=== PATIENT | female | born 1965 | race Two or more races ===

== ENCOUNTER 2021-04-26 08:34 | Emergency (ER) | payer BC, SELFPAY ==
[2021-04-26 08:59] VITALS: BP 154/99; PULSE 99; RESP 16; TEMP 37.2; O2SAT 98; BMI 29.2
--- NOTE | 2021-04-26 09:08 | ED.NECK ---
HPI - Neck Pain/Injury General Chief Complaint: Neck Pain/Injury Stated Complaint: neck pain Time Seen by Provider: 04/26/21 09:08 Related Data Previous Rx's Medication Instructions Recorded cyclobenzaprine 10 mg PO TID PRN #14 tab 04/26/21 ibuprofen 400 mg PO Q6H PRN #20 tab 04/26/21 Allergies Allergy/AdvReac Type Severity Reaction Status Date / Time No Known Allergies Allergy Verified 04/26/21 08:59 PMFSH Past Medical History Medical History (Updated 04/26/21 @ 09:09 by Constance Bethea MD) High cholesterol Surgical History (Updated 04/26/21 @ 09:05 by Stephanie Ross) H/O tubal ligation Hx of cholecystectomy Social History Social History Advance Directives: No Advance Directives Information Provided: Yes Patient : No Physical Exam Vital Signs: Vital Signs: Last Vital Signs Temp 98.9 F 04/26/21 08:59 Pulse 99 04/26/21 08:59 Resp 16 04/26/21 08:59 BP 154/99 H 04/26/21 08:59 Pulse Ox 98 04/26/21 08:59 Body Mass Index 29.2 Discharge Plan Discharge Clinical Impression: Torticollis Patient Disposition: Home, Self-Care Instructions: Spasmodic Torticollis (ED) Prescriptions: New cyclobenzaprine 10 mg tablet 10 mg PO TID PRN (Reason: pain) Qty: 14 RF: 0 ibuprofen 400 mg tablet 400 mg PO Q6H PRN (Reason: pain) Qty: 20 RF: 0 Stand Alone Forms: Work/School Release
--- NOTE | 2021-04-26 09:11 | ED_ITS ---
HPI - Neck Pain/Injury General Chief Complaint: Neck Pain/Injury Stated Complaint: neck pain Time Seen by Provider: 04/26/21 09:08 History of Present Illness HPI Narrative: 55 years old presents today with left neck pain. Worse with movement of the neck. No fever no chills. No photophobia. No pain on turning her head to the right. No focal weakness. Pain is 8/10 when she is turning her head. Related Data Previous Rx's Medication Instructions Recorded cyclobenzaprine 10 mg PO TID PRN #14 tab 04/26/21 ibuprofen 400 mg PO Q6H PRN #20 tab 04/26/21 Allergies Allergy/AdvReac Type Severity Reaction Status Date / Time No Known Allergies Allergy Verified 04/26/21 08:59 Review of Systems Review of Systems: No fever no chills no photophobia and no focal weakness All systems reviewed otherwise negative Yes all other systems are reviewed and are negative [facility] Past Medical History Attestation statement: The following information was validated with the patient. Medical History High cholesterol Surgical History H/O tubal ligation Hx of cholecystectomy Social History Social History Advance Directives: No Advance Directives Information Provided: Yes Patient : No Physical Exam Vital Signs: Vital Signs: Last Vital Signs Temp 98.9 F 04/26/21 08:59 Pulse 99 04/26/21 08:59 Resp 16 04/26/21 08:59 BP 154/99 H 04/26/21 08:59 Pulse Ox 98 04/26/21 08:59 Body Mass Index 29.2 Appearance: Alert. Oriented X3. No acute distress. Eyes: Pupils equal, round and reactive to light. ENT: Pharynx normal. Neck: Positive pain to the left neck in the trapezius muscle. There is no tenderness on palpation of the midline spine. Trachea is midline there is no crepitus on palpation. No pain on turning her head to the right CVS: Normal heart rate and rhythm. Pulses normal. Normal S1 and S2 Respiratory: No respiratory distress. Breath sounds normal. No Wheezing. No rales Abdomen: Soft and nontender. No rigidity. No distention. good BS x4 Skin: Skin warm and dry. Normal skin color. Normal skin turgor. Extremities: No lower extremity edema. Neurovascular intact to all extremities. No Lacerations. No Rash Neuro: Oriented X 3. No motor deficit. No sensory deficit. Moving all extermities. No slurred speech MDM - Neck Pain/Injury MDM Narrative Medical decision making narrative: No evidence for meningitis symptoms suggestive toward a callus. Will give muscle relaxant and NSAIDs. Follow-up outpatient. Discharge Plan Discharge Clinical Impression: Torticollis Patient Disposition: Home, Self-Care Instructions: Spasmodic Torticollis (ED) Prescriptions: New cyclobenzaprine 10 mg tablet 10 mg PO TID PRN (Reason: pain) Qty: 14 RF: 0 ibuprofen 400 mg tablet 400 mg PO Q6H PRN (Reason: pain) Qty: 20 RF: 0 Stand Alone Forms: Work/School Release
== END 2021-04-26 09:15 | disposition home or self-care (01) ==
LOC: HO.ED 09:09
PROVIDERS: Emergency Provider Emergency Medicine Emergency Medical Services; PCP Internal Medicine
DX: G24.3 Spasmodic torticollis (principal)
CPT/HCPCS: 99283

== ENCOUNTER 2021-10-31 10:19 | Emergency (ER) | payer BC, SELFPAY ==
--- NOTE | ~2021-10-31 | XR_ITS ---
EXAMINATION: XR CHEST CLINICAL INFORMATION: Cough and SOB COMPARISON: None TECHNIQUE: 2 views of the chest were obtained. FINDINGS: The lungs are well-expanded and clear acute pneumonic process. The heart size and pulmonary vascularity is normal. There is moderate spondylosis dorsal spine. No lytic process seen. XR/XR chest 2V IMPRESSION: Unremarkable chest exam.
[2021-10-31 10:53] VITALS: BP 127/72; PULSE 104; RESP 97; TEMP 36.4; O2SAT 97; BMI 29.2
[2021-10-31 11:20] VITALS: BP 134/85; PULSE 104; RESP 22; TEMP 36.6; O2SAT 96
--- NOTE | 2021-10-31 11:20 | ECG_ITS ---
Test Reason : tachycardia Blood Pressure : / mmHG Vent. Rate : 098 BPM Atrial Rate : 098 BPM P-R Int : 148 ms QRS Dur : 074 ms QT Int : 344 ms P-R-T Axes : 046 044 018 degrees QTc Int : 439 ms Normal sinus rhythm Normal ECG No previous ECGs available Referred By: Akira Matthew Electronically Signed By:MARIBELL BLANK MD
[2021-10-31 11:25] VITALS: PULSE 103; O2SAT 97
--- NOTE | 2021-10-31 11:26 | PC.NURSE ---
pt a&ox3, reports sore throat, cough for ~1 week, COVID + (tested 10/23/21), desk monitor applied, sinus tach, vss.
--- NOTE | 2021-10-31 11:29 | ED.GENADULT ---
HPI - General Adult General Chief complaint: Upper Respiratory Symptoms Stated complaint: sob Time Seen by Provider: 10/31/21 11:20 Source: patient Limitations: no limitations History of Present Illness HPI narrative: This is a 55-year-old female who has had a cough for about a week. The patient did test positive for COVID on October 23. Patient complains of persistent cough. She denies fever. She denies shortness of breath or chest pain. She denies any swelling in her legs. She has had a poor appetite and notes when she eats she does does not feel like having much but she is drinking plenty of water. She denies any nausea vomiting or diarrhea. She denies abdominal pain. Related Data Previous Rx's Medication Instructions Recorded cyclobenzaprine 10 mg tablet 10 mg PO TID PRN #14 tab 04/26/21 ibuprofen 400 mg tablet 400 mg PO Q6H PRN #20 tab 04/26/21 iojvmuklkiadhge-lzkogxwjnqxdybd-MQ 7.5 ml PO Q4-6H PRN #118 ml 10/31/21 2 mg-30 mg-10 mg/5 mL oral syrup (Bromfed DM) Allergies Allergy/AdvReac Type Severity Reaction Status Date / Time No Known Allergies Allergy Verified 04/26/21 08:59 Review of Systems Constitutional: Constitutional: Reports as per HPI and Reports fatigue Eyes: Eyes: Reports as per HPI ENT: Reports system reviewed and no additional complaints, except as documented Cardiovascular: Cardiovascular: Denies chest pain, Denies irregular heart rhythm and Denies leg edema Respiratory: Respiratory: Reports cough Gastrointestinal: Gastrointestinal: Denies diarrhea, Denies nausea and Denies vomiting Comments: Poor appetite Musculoskeletal: Musculoskeletal: Reports no additional musculoskeletal complaints Neurologic: Denies Sensory deficit (Neuro) Endocrine: Endocrine: Reports fatigue [facility] Past Medical History Medical History High cholesterol Surgical History H/O tubal ligation Hx of cholecystectomy Social History Social History Alcohol intake: never Patient Tobacco Use Status: Never used Tobacco Use of substances other than those prescribed or required for medical reasons: No Advance Directives: Yes Advance Directives Information Provided: Yes Advance Directives on File: No Medical Decision Making MDM Narrative Medical decision making narrative: Patient with URI symptoms for 3 weeks, persistent cough. Patient initially had a viral syndrome and may have persistent bronchitis. Chest x-ray negative. Will prescribe a regimen of cough medicine Imaging Data Chest x-ray: Radiologist's impression: FINDINGS: The lungs are well-expanded and clear acute pneumonic process. The heart size and pulmonary vascularity is normal. There is moderate spondylosis dorsal spine. No lytic process seen. XR/XR chest 2V IMPRESSION: Unremarkable chest exam. ECG Data Attestation: I personally reviewed and interpreted this ECG as follows: Interpretation: Sinus rhythm with a rate of 98. No ST elevation or depression. Normal QRS axis. Normal EKG. Discharge Plan Discharge Clinical Impression: Upper respiratory infection Patient Disposition: Home, Self-Care Instructions: Acute Bronchitis (ED) Additional Instructions: Drink plenty of fluids. Use the cough medicine as prescribed. Return for any new or worsened symptoms such as fever, shortness of breath or chest pain Prescriptions: New noaptgfsfpvnviz-tgdqfwued-WF [Bromfed DM] 2-30-10 mg/5 mL syrup 7.5 ml PO Q4-6H PRN (Reason: cold symptoms) Qty: 118 1RF No Action cyclobenzaprine 10 mg tablet 10 mg PO TID PRN (Reason: pain) Qty: 14 0RF ibuprofen 400 mg tablet 400 mg PO Q6H PRN (Reason: pain) Qty: 20 0RF Stand Alone Forms: Work/School Release Interventions: ED Discharge Assessment Last Done: 10/31/21 12:36 Discharge Date/Time: 10/31/21 12:44
== END 2021-10-31 12:44 | disposition home or self-care (01) ==
PROVIDERS: Emergency Provider Emergency Medicine; PCP Internal Medicine
DX: J06.9 Acute upper respiratory infection, unspecified (principal); Z86.16 Personal history of COVID-19
CPT/HCPCS: 71046; 93005; 99283; 99285

== ENCOUNTER 2022-05-06 15:12 | Emergency (ER) | payer BC, SELFPAY ==
[2022-05-06 16:13] VITALS: BP 129/66; PULSE 82; RESP 18; TEMP 36.5; O2SAT 97; BMI 28.6
[2022-05-06 16:35] LABS: Appearance Urine HAZY; Color Urine YELLOW; Glucose Urine UA 500 MG/DL (NEG); Leukocyte Esterase Urine NEG (NEG); Nitrite Urine NEG (NEG); Urine Blood NEG (NEG); Urine Ketones 5 MG/DL (NEG); Urine Protein NEG (NEG-TRACE)
--- NOTE | 2022-05-06 18:12 | ED.BACK ---
HPI - Back Pain/Injury General Chief Complaint: Back Pain/Injury Stated Complaint: L Side Back Pain No Injury Time Seen by Provider: 05/06/22 17:43 Source: patient Mode of arrival: ambulatory Limitations: no limitations History of Present Illness HPI Narrative: 56 yold male presents to the ED for left sided back pain that is worse on movement for one week. patient denies any blunt trauma, nausea, vomitting, dysuria, hematuria, abdominal pain, or vaginal bleeding. patient denies any IV drug use or any immunocompromised diseases. patient denies any urinary/bowel incontinence or morphine Related Data Previous Rx's Medication Instructions Recorded cyclobenzaprine 10 mg tablet 10 mg PO TID PRN pain #14 tabs 04/26/21 ibuprofen 400 mg tablet 400 mg PO Q6H PRN pain #20 tabs 04/26/21 zisgnvuhklbdykx-xkajsvwjdwdvvlz-SB 7.5 ml PO Q4-6H PRN cold symptoms 10/31/21 2 mg-30 mg-10 mg/5 mL oral syrup #118 mL (Bromfed DM) cyclobenzaprine 10 mg tablet 10 mg PO TID PRN muscle spasm 7 05/06/22 days #21 tabs naproxen 500 mg tablet 500 mg PO BID PRN pain 10 days #20 05/06/22 tabs prednisone 20 mg tablet 40 mg PO DAILY 5 days #10 tabs 05/06/22 Allergies Allergy/AdvReac Type Severity Reaction Status Date / Time No Known Allergies Allergy Verified 05/06/22 16:13 Review of Systems Review of Systems: left sided back pain Yes all other systems are reviewed and are negative PMFSH Past Medical History Medical History High cholesterol Surgical History H/O tubal ligation Hx of cholecystectomy Social History Social History Alcohol intake: never Patient Tobacco Use Status: Never used Tobacco Advance Directives: No Advance Directives Information Provided: No Physical Exam Vital Signs: Vital Signs: Last Vital Signs Temp 97.7 F 05/06/22 16:13 Pulse 68 05/06/22 18:44 Resp 18 05/06/22 18:44 BP 138/83 05/06/22 18:44 Pulse Ox 97 05/06/22 16:13 O2 Del Method 05/06/22 16:13 BMI result Body Mass Index 28.6 Const: General: cooperative, healthy appearing, comfortable, no acute distress, well developed, alert and awake Orientation/consciousness: oriented to time and patient oriented x3 HEENT: Head: Yes normal to inspection, Yes No palpable skull fracture present, Yes normocephalic, Yes atraumatic and No abrasion Eyes: General: appearance normal, both eyes and all related structures Neck: Neck: Yes normal visual inspection, Yes full ROM, Yes no lymphadenopathy, Yes no meningeal signs, Yes trachea midline, Yes supple, No anterior neck swelling and No tender Chest: Chest palpation & inspection: normal inspection of the chest and normal palpation of entire chest wall Resp: Effort & Inspection: normal respiratory effort and able to speak in complete sentences Auscultation: clear to auscultation bilaterally Cardio: Jugular venous distension: no JVD Heart sounds: S1 normal heart sound present and S2 normal heart sound present GI: Inspection: Yes normal to inspection and No abdominal wall ecchymosis Palpation (GI): Soft to palpation, not firm, nontender, no guarding and not rigid : General: No CVA tenderness and Yes no CVA tenderness Back/Spine/Pelvis: Back: no CVA tenderness, No CVA tenderness and No back tenderness Back/spine/pelvis image: 1. positive for muscular back pain on palpation. negative for spine tenderness. negative for erythema, redness, ecchymosis, or rash. Positive for pain on range of motion. Skin: General skin exam: no rashes or lesions noted, elasticity normal and turgor normal Neuro: General: oriented to time, patient oriented x3, gait normal and no meningeal signs Cranial nerves: Yes CN's II-XII intact bilaterally Extrem: General: Yes normal to inspection and Yes full ROM Psych: Appearance: grossly normal, well kempt and not disheveled Course Course Course Narrative: UA order. No need for xrays. negative for spine tendernes. Reevaluation(s) Reevaluation #1: UA negateive for blood to indicate kidney stones. uA negaive for UTI. negative for spine tenderness. Muscular back pain. patient UA shows over 500 gucose. POC glucose orderd and is 185. patient informed to follow up [facility] PCP for Diabetes workup. Time: 18:28 MDM - Back Pain/Injury MDM Narrative Medical decision making narrative: muscular back pain Lab Data Labs: Lab Results 05/06/22 05/06/22 Range/Units 16:19 18:33 POC Glucose 185 H (60-115) mg/dL Urine Color YELLOW Urine Appearance HAZY Urine pH 6.0 (5.0-8.0) Ur Specific [place] 1.020 (1.005-1.025) Urine Protein NEG (NEG-TRACE) MG/DL Urine Glucose (UA) 500 H (NEG) MG/DL Urine Ketones 5 (NEG) MG/DL Urine Blood NEG (NEG) Urine Nitrite NEG (NEG) Ur Leukocyte Esterase NEG (NEG) Discharge Plan Discharge Clinical Impression: Lumbar back sprain Patient Disposition: Home, Self-Care Instructions: Low Back Strain (ED) Additional Instructions: Your pain due to muscular back pain. You UA negative for UTI. REturn to the ED immediatley for any urinary/bowel incontinence, abdominal pain, nausea, hematuria, flank pain, fever, chills, paralysis of lower extremities, or any other concerning symptoms. Please follow up [facility] PCP Prescriptions: New naproxen 500 mg tablet 500 mg PO BID PRN (Reason: pain) 10 Days Qty: 20 0RF prednisone 20 mg tablet 40 mg PO DAILY 5 Days Qty: 10 0RF cyclobenzaprine 10 mg tablet 10 mg PO TID PRN (Reason: muscle spasm) 7 Days Qty: 21 0RF Rx Instructions: side effect is drowsiness. Do not take at work or while driving. No Action cyclobenzaprine 10 mg tablet 10 mg PO TID PRN (Reason: pain) Qty: 14 0RF ibuprofen 400 mg tablet 400 mg PO Q6H PRN (Reason: pain) Qty: 20 0RF bioyuihovqgiuhi-vzsrimimt-ZT [Bromfed DM] 2-30-10 mg/5 mL syrup 7.5 ml PO Q4-6H PRN (Reason: cold symptoms) Qty: 118 1RF Stand Alone Forms: Work/School Release Interventions: ED Discharge Assessment Last Done: 05/06/22 19:09 Discharge Date/Time: 05/06/22 19:11 Print Language: [place]an
[2022-05-06 18:40] LABS: Glucose, Whole Blood 185 mg/dL (60-115)
[2022-05-06] MEDS: predniSONE 20 MG TABLET 60 MG PO (18:42)
[2022-05-06] MEDS: Ibuprofen 800 MG TABLET PO (18:43)
[2022-05-06 18:44] VITALS: BP 138/83; PULSE 68; RESP 18
--- NOTE | 2022-05-06 18:45 | PC.NURSE ---
sitting up on stretcher, medicated per order. No facial grimace at rest, awaiting dispo
== END 2022-05-06 19:11 | disposition home or self-care (01) ==
PROVIDERS: Emergency Provider Student in an Organized Health Care Education/Training Program; PCP Internal Medicine
DX: M54.50 Low back pain, unspecified (principal); Z79.899 Other long term (current) drug therapy
CPT/HCPCS: 81003; 82947; 99283

== ENCOUNTER 2024-12-09 15:53 | Emergency (ER) | payer BC, SELFPAY ==
--- NOTE | ~2024-12-09 | CT_ITS ---
CLINICAL HISTORY: LLQ ABD pain, TTP CT abdomen and pelvis with contrast Comparison: CT - CT ABDOMEN PELVIS W IV CON - 12/09/24 21:00 EST Findings: No consolidation or effusion. The patient is status post cholecystectomy. There is hepatic steatosis. There is a small nonobstructing calculus in the midpole of the right kidney. There is colonic diverticulosis without evidence of diverticulitis. There is epiploic appendagitis distal descending colon. Pelvic contents unremarkable. Normal appendix. No acute fracture. The GI tract is otherwise unremarkable. IMPRESSION: 1. Epiploic appendagitis distal descending colon. 2. Colonic diverticulosis without evidence of diverticulitis. 3. Tiny nonobstructing calculus midpole right kidney. 4. Hepatic steatosis. This document has been electronically signed by: Pop Starr MD on 12/09/2024 22:08:05
--- NOTE | ~2024-12-09 | US_ITS ---
CLINICAL HISTORY: L pelvic pain US female pelvis LMP:5 years ago, postmenopausal. Technique: Ultrasound examination of the pelvis was performed with transabdominal and transvaginal technique for better visualization of the ovaries. Comparison: None Findings: Anteverted uterus measuring 7.0 x 3.0 x 3.7cm without masses. Normal endometrial thickness of 0.4cm. The ovaries were not visualized. No lesions in the adnexa. No free fluid. Impression: Normal uterus. The ovaries were not visualized. No abnormality in the adnexa. No free fluid. This document has been electronically signed by: Marysol Gatica MD on 12/09/2024 17:37:42
[2024-12-09 16:15] VITALS: BP 171/90; PULSE 76; RESP 16; TEMP 36.6; O2SAT 99; BMI 27.3
--- NOTE | 2024-12-09 16:23 | ED_ITS ---
HPI - Abdominal Pain General Chief Complaint: Abdominal Pain Stated Complaint: lower abd pain Time Seen by Provider: 12/09/24 20:21 Source: patient Mode of arrival: ambulatory Limitations: no limitations History of Present Illness ED Provider: mindi acosta np HPI narrative: patient is a 59-year-old female who presents emergency department for evaluation. She admits to having pain in the left lower pelvic/left lower quadrant abdominal region for 4 days. she reports that it feels different from pain that she has felt in the past secondary to menstrual pain. She states she has been in menopause for the past 5 years. Denies fevers, chills, chest pain, nausea, vomiting, hematemesis, diarrhea, constipation, hematochezia, melena, dysuria, urinary frequency, urinary urgency, urinary hesitancy, hematuria, Denies abnormal vaginal discharge or any bleeding. Denies concern for sexually transmitted infection. Related Data Previous Rx's ?Medication ?Instructions ?Recorded cyclobenzaprine 10 mg tablet 10 mg PO TID PRN pain #14 tabs 04/26/21 ibuprofen 400 mg tablet 400 mg PO Q6H PRN pain #20 tabs 04/26/21 yjnwolfomjtoqrd-gmxljdqqliwvhlz-SD 7.5 ml PO Q4-6H PRN cold symptoms 10/31/21 2 mg-30 mg-10 mg/5 mL oral syrup #118 mL (Bromfed DM) cyclobenzaprine 10 mg tablet 10 mg PO TID PRN muscle spasm 7 05/06/22 days #21 tabs naproxen 500 mg tablet 500 mg PO BID PRN pain 10 days #20 05/06/22 tabs prednisone 20 mg tablet 40 mg (2 x 20 mg) PO DAILY 5 days 05/06/22 #10 tabs Allergies Allergy/AdvReac Type Severity Reaction Status Date / Time No Known Allergies Allergy Verified 12/09/24 16:18 Review of Systems Review of Systems Yes all other systems are reviewed and are negative PMFSH Past Medical History Attestation statement: The following information was validated with the patient. Source: old records reviewed Medical History High cholesterol Surgical History Hx of cholecystectomy H/O tubal ligation Social History Social History Alcohol intake: never Patient Tobacco Use Status: Never used Tobacco Advance Directives: No Advance Directives Information Provided: No Physical Exam ED Vital Signs: Vital Signs - 24 hr 12/09/24 16:15 12/09/24 20:25 12/09/24 22:31 Temperature 97.8 F 97.2 F 98.6 F Pulse Rate 76 84 74 Respiratory Rate 16 16 16 Blood Pressure 171/90 H 161/100 H 148/94 H Pulse Oximetry 99 97 99 Oxygen Delivery Method Room Air Room Air Room Air BMI result Body Mass Index 27.3 Appearance: Alert.?Oriented to person, place and time. No acute distress.?Normal affect.?? Neck: Normal inspection.? Neck supple.?? CVS: Heart sounds normal. Normal heart rate and rhythm.? Pulses normal.?? Respiratory: No respiratory distress.? Lung sounds clear to auscultation bilaterally?? Abdomen: Soft with left lower quadrant tenderness upon palpation. No rebound tenderness at McBurney's point. Negative psoas sign. Negative Rovsing sign. Negative Ramires sign. No CVAT. Normoactive bowel sounds. No pulsatile mass.?? Skin: Skin warm and dry.? Normal skin color.? Extremities: No lower extremity edema.? Neuro: Moves all extremities spontaneously. Sensation intact bilaterally. Ambulates with normal steady gait. Course Course Course Narrative: This is an RME: Additional HPI, ROS, PE not included below will be deferred to primary provider. RME assessment and note performed by: Nataliia Trevizo PA-C This is a 59-year-old female who presents emergency department with complaints of left lower pelvic pain x4 days. She denies any nausea, vomiting, diarrhea or urinary symptoms. Still eating and drinking. No history of cyst. She does have mild tenderness palpation in the left lower quadrant. Plan: Labs, UA,US pelvic Reevaluation(s) Reevaluation #1: CT of the abdomen and pelvis revealing epiploic appendagitis of the distal descending colon, reviewed this finding with patient, advised conservative treatment with NSAIDs; ibuprofen 600 mg every 6 hours alternating with acetaminophen as necessary. She is tolerating oral intake. Medical Decision Making Medical Decision Making MDM Narrative: patient is a 59-year-old female with past medical history of hypercholesterolemia, prior cholecystectomy tubal ligation in menopause for the past 5 years who presents emergency department for evaluation of left lower quadrant abdominal /pelvic pain as per HPI. She has tenderness In the left lower quadrant upon palpation. overall without signs of systemic toxicity found to be afebrile without tachycardia, no hypotension. No rebound tenderness at McBurney's point, rigidity, guarding to suggest acute appendicitis. Given tenderness of the left lower quadrant though she is without associated nausea, vomiting, diarrhea, constipation, hematochezia or melena, given her age concern for diverticulitis, will obtain CT of the abdomen and pelvis for further evaluation. Pelvic ultrasound was obtained prior to my assumption of care, normal appearance of the uterus ovaries not well visualized. HCG is detectable at 4, not consistent with , especially given that she has been menopause for the past 5 years. CBC is without leukocytosis anemia or thrombocytopenia. No electrolyte derangement. No DIEGO. LFTs within normal range. Urinalysis without evidence of infection or microscopic hematuria. She denies any recent straining heavy lifting or exercising that would have resulted in a notable musculoskeletal strain. Differential Diagnosis Differential Diagnoses: The differential diagnosis associated with the presentation includes (See narrative above) Admission/Observation Consideration of admission/observation: Escalation of care including admission/observation considered (See narrative above ) Lab Data MDM Lab Attestation statement: I reviewed the patient's lab results. (see narrative above) 12/09/24 16:43 12/09/24 16:43 Labs: Lab Results 12/09/24 12/09/24 Range/Units 16:43 16:46 WBC 8.6 (4.8-10.8) X10*3/uL RBC 4.76 (4.20-5.50) X10*6/uL Hgb 14.0 (12.0-16.0) g/dl Hct 41.6 (37.0-47.0) % MCV 87.4 (80.0-98.0) fL MCH 29.4 (27.0-33.0) pg MCHC 33.7 (31.0-35.0) g/dl RDW 13.1 (11.0-16.0) % Plt Count 315 (160-400) X10*3/uL MPV 10.1 (9.4-12.3) fL Immature Gran % (Auto) 0.3 (0.0-0.4) % Neut % (Auto) 48.4 (45-73) % Lymph % (Auto) 41.4 H (20-40) % [place] % (Auto) 7.0 (2-11) % Eos % (Auto) 2.1 (0-4) % Baso % (Auto) 0.8 (0-2) % Lymph # (Auto) 3.6 (1.2-4.9) X10*3/uL [place] # (Auto) 0.6 (0.1-1.2) X10*3/uL Eos # (Auto) 0.2 (0.0-0.4) X10*3/uL Baso # (Auto) 0.1 (0.0-0.2) X10*3/uL Abs Immat Gran (auto) 0.03 (0.00-0.03) X10*3/uL Absolute Neuts (auto) 4.2 (2.0-8.3) x10*3/uL Absolute Nucleated RBC 0.000 (0.0-0.012) X10*3/uL Nucleated RBC % (auto) 0.0 (0.0-0.2) /100WBC Sodium 143 (135-145) mmol/L Potassium 3.9 (3.3-5.1) mmol/L Chloride 107 (96-108) mmol/L Carbon Dioxide 26 (22-29) mmol/L Anion Gap 14 (12-20) BUN 12 (9-16) mg/dL Creatinine 0.83 (0.5-1.4) mg/dL Estim Creat Clear Calc 77.3 Estimated GFR > 60 Random Glucose 85 (60-115) mg/dL Calcium 10.2 (8.4-10.2) mg/dL Total Bilirubin 0.4 (0.0-1.0) mg/dL Direct Bilirubin 0.1 (0.0-0.5) mg/dL AST 25 (5-31) U/L ALT 29 (0-31) U/L Alkaline Phosphatase 64 (39-117) U/L Total Protein 8.6 H (6.5-8.0) g/dL Albumin 4.7 (3.5-5.0) g/dL Beta HCG, Quant 4 mIU/mL Urine Color Yellow Urine Appearance Clear Urine pH 7.5 (5.0-9.0) Ur Specific [place] <= 1.005 (1.005-1.025) Urine Protein Negative (Neg-Trace) mg/dL Urine Glucose (UA) Negative (Negative) mg/dL Urine Ketones Negative (Negative) mg/dL Urine Blood Negative (Negative) Urine Nitrite Negative (Negative) Ur Leukocyte Esterase Negative (Negative) Radiology Impression Discussion of test interpretation with radiology: I have reviewed the radiologist's reading. Radiologist Impression: US female pelvis LMP:5 years ago, postmenopausal. Technique: Ultrasound examination of the pelvis was performed with transabdominal and transvaginal technique for better visualization of the ovaries. Comparison: None Findings: Anteverted uterus measuring 7.0 x 3.0 x 3.7cm without masses. Normal endometrial thickness of 0.4cm. The ovaries were not visualized. No lesions in the adnexa. No free fluid. Impression: Normal uterus. The ovaries were not visualized. No abnormality in the adnexa. No free fluid. IMPRESSION: CT AP w/ IV contrast 1. Epiploic appendagitis distal descending colon. 2. Colonic diverticulosis without evidence of diverticulitis. 3. Tiny nonobstructing calculus midpole right kidney. 4. Hepatic steatosis. External Record Review External record reviewed: Outpatient record Medications Administered Discontinued Medications Generic Name Dose Route Start Last Admin Trade Name Freq PRN Reason Stop Dose Admin Sodium Chloride 1,000 mls @ 999 mls/hr 12/09/24 21:15 12/09/24 21:23 Ns IV 12/09/24 22:15 999 mls/hr .Q1H1M LO Administration Iohexol 85 ml 12/09/24 21:38 12/09/24 21:39 Iohexol 350 Mg/Ml 100 Ml Infus..Btl IV 12/09/24 21:39 85 ml ONCE ONE Administration Discharge Plan Discharge Clinical Impression: Epiploic appendagitis Patient Disposition: Home, Self-Care Additional Instructions: CT today reveals epiploic appendagitis, which is fatty outpouches on the surface of your intestines which is likely the source of the pain that you are experiencing. You can take ibuprofen 200 mg, 3 tablets (600mg) every 6-8 hours as needed for pain, in addition to Tylenol 500 mg, 2 tablets (1,000mg) every 4-6 hours as needed for pain, but not to exceed 3 doses daily (3,000mg).? Follow-up with your primary care doctor. Return with any new or worsening symptoms or concerns such as high fever, worsening pain, nausea and persistent vomiting, unable to tolerate eating or drinking. Prescriptions: No Action cyclobenzaprine 10 mg tablet 10 mg PO TID PRN (Reason: pain) Qty: 14 0RF ibuprofen 400 mg tablet 400 mg PO Q6H PRN (Reason: pain) Qty: 20 0RF bghxsuljyofomwa-tptnqvohq-QU [Bromfed DM] 2-30-10 mg/5 mL syrup 7.5 ml PO Q4-6H PRN (Reason: cold symptoms) Qty: 118 1RF naproxen 500 mg tablet 500 mg PO BID PRN (Reason: pain) 10 Days Qty: 20 0RF prednisone 20 mg tablet 40 mg PO DAILY 5 Days Qty: 10 0RF cyclobenzaprine 10 mg tablet 10 mg PO TID PRN (Reason: muscle spasm) 7 Days Qty: 21 0RF Rx Instructions: side effect is drowsiness. Do not take at work or while driving. Referrals: Shannon Velasquez MD [Primary Care Provider] - Print Language: Romanian
[2024-12-09 16:56] LABS: MANUAL DIFF FLAG NO
[2024-12-09 16:59] LABS: Appearance Urine Clear; Color Urine Yellow; Glucose Urine UA Negative (Negative); Leukocyte Esterase Urine Negative (Negative); Nitrite Urine Negative (Negative); PH 7.5 (5.0-9.0); Specific Gravity - Urine <= 1.005 (1.005-1.025); Urine Blood Negative (Negative); Urine Ketones Negative (Negative); Urine Protein Negative (Neg-Trace)
[2024-12-09 17:00] LABS: Basophils Absolute Auto 0.1 X10*3/uL (0.0-0.2); Basophils Percent Auto 0.8 % (0-2); Eosinophils Absolute Auto 0.2 X10*3/uL (0.0-0.4); Eosinophils Percent Auto 2.1 % (0-4); Hematocrit 41.6 % (37.0-47.0); Imm Gran Abs Auto 0.03 X10*3/uL (0.00-0.03); Imm Gran Pct Auto 0.3 % (0.0-0.4); Lymphocytes Absolute Auto 3.6 X10*3/uL (1.2-4.9); Lymphocytes Percent Auto 41.4 % (20-40); Mean Corpuscular HGB Conc 33.7 g/dl (31.0-35.0); Mean Corpuscular Hemoglobin 29.4 pg (27.0-33.0); Mean Corpuscular Volume 87.4 fL (80.0-98.0); Mean Platelet Volume 10.1 fL (9.4-12.3); Monocytes Absolute Auto 0.6 X10*3/uL (0.1-1.2); Neutrophils Absolute Auto 4.2 x10*3/uL (2.0-8.3); Neutrophils Percent Auto 48.4 % (45-73); Platelet Count 315 X10*3/uL (160-400); Red Blood Count 4.76 X10*6/uL (4.20-5.50); Red Cell Distribution Width 13.1 % (11.0-16.0); White Blood Count 8.6 X10*3/uL (4.8-10.8)
[2024-12-09 17:20] LABS: Alanine Aminotransferase 29 U/L (0-31); Albumin Level 4.7 g/dL (3.5-5.0); Alkaline Phosphatase 64 U/L (39-117); Anion Gap 14 (12-20); Aspartate Amino Transferase 25 U/L (5-31); Bilirubin Direct 0.1 mg/dL (0.0-0.5); Bilirubin Total 0.4 mg/dL (0.0-1.0); Blood Urea Nitrogen 12 mg/dL (9-16); Calcium 10.2 mg/dL (8.4-10.2); Carbon Dioxide 26 mmol/L (22-29); Chloride 107 mmol/L (96-108); Creatinine Clr Calc Pharmacy 77.3; Estimated Glomerular Filt Rate > 60; Glucose Random 85 mg/dL (60-115); HCG Quantitative 4 mIU/mL; Potassium 3.9 mmol/L (3.3-5.1); Sodium 143 mmol/L (135-145); Total Protein 8.6 g/dL (6.5-8.0)
[2024-12-09 20:25] VITALS: BP 161/100; PULSE 84; RESP 16; TEMP 36.2; O2SAT 97
--- OUTSIDE RECORDS SUMMARY | 2024-12-09 21:01 | XMS_ITS | Encounter Summary ---
Author Organization [employer] Address [address] [place] [address] Care Team Providers Care Inspector Of Weights And Measures Name Role Phone Shannon Hendrix MD Primary Care Prov ider Reason for Visit * Reason Comments Pain * Consultation (Routine) - Closed Specialty Diagnoses / Procedures Referred By Contac t Referred To Contact Hand Surgery / Orthopaedic Surgery Diagnoses Right wrist pain Shannon Hendrix MD [address] [place] [address] Phone: tel: fax: Orthopedic Surgery [facility] [address] [address] Phone: tel: fax: Referral ID Status Reason Start Date Expiration Date V isits Requested Visits Authorized [id number] Closed Specialty Services Required 10/28/2024 10/28/2025 1 1 Encounter Details Date Type Department Care Team (Late st Contact Info) Description 11/22/2024 1:30 PM EST Office Visit Orthopedic Surgery - [place] [address] [address] Shayna Castano PA [address] [address] CMC arthritis (Primary Dx); Right wrist pain; Carpal tunnel syndrome of right wrist Social History Tobacco Use Types Packs/Day Years Used Date Smoking Tobacco: Never Smokeless Tobacco: Never Alcohol Use Standard Drinks/Week Comments No 0 (1 standard drink = 0.6 oz pur e alcohol) Housing Instability Answer Date Recorde d Are you worried that in the next 2 months you may not have stable housing? No 10/28/2024 Food Access & Nutrition Answer Date Rec orded Do you have access to a vari ety of food including fruits and vegetables? Yes 10/28/2024 Access to Healthcare Answer Date Record ed Within the last 3 months, ho w many times did you visit the emergency department for your medical care? 0 10/28/2024 Health Literacy Answer Date Recorded How often do you need to hav e someone help you when you read instructions, pamphlets, or other written material from your doctor or pharmacy? Never 10/28/2024 Caregiver: How often do you need to have someone help you when you read instructions, pamphlets, or other written material from your doctor or pharmacy? Not on file 10/28/2024 Financial Risk Answer Date Recorded How hard is it for you to pa y for the very basics like food, housing, medical care, and air conditioning / heating? Not very hard 10/28/2024 Transportation Answer Date Recorded Has the lack of transportati on kept you from meetings, work, or from getting things needed for daily living? No Has the lack of transportati on kept you from medical appointments or from getting medications? No 10/28/2024 Social Isolation Answer Date Recorded How often do you feel lonely or isolated from th ose around you? Never 10/28/2024 Food Risk Answer Date Recorded Within the past 12 months we worried whether our food would run out before we got money to buy more. Never true 10/28/2024 Within the past 12 months th e food we bought just didn't last and we didn't have money to get more. Never true 10/28/2024 Living Situation Answer Date Recorded What is your living situation? 0 10/28/2024 Comments No Sex and Gender Information Value Date Recorded Sex Assigned at Not on file Legal Sex Female 12:52 AM EST Gender Identity Not on file Sexual Orientation Not on file documented as of this encounter Last Filed Vital Signs Vital Sign Reading Time Taken Comments Blood Pressure - - Pulse - - Temperature - - Respiratory Rate - - Oxygen Saturation - - Inhaled Oxygen Concentration - - Weight 78 kg (172 lb) 11/22/2024 1:05 PM EST Height 162.6 cm (5' 4 ) 11/22/2024 1:05 PM EST Body Mass Index 29.52 11/22/2024 1:05 PM EST documented in this encounter Progress Notes * DA Bills - 11/22/2024 1:30 PM EST Referring MD:Shannon Hendrix* Laquita Walsh is a 58 y.o. year old female who presents for consultation regarding Chief Complaint Patient presents with Right Wrist - Pain . HPI: 58-year-old ifdkq-dwrh-bhdmcewf female with chief complaint of right hand/wrist pain ongoing for about a year on and off. No injury to her right hand or prior surgeries. Follow-up with she localizes the pain actually to her right thumb basal joint. Pain is worse with activity, opening jars, trying to button her pants. She does get some numbness tingling in thumb and index finger intermittently. No nocturnal symptoms. patient does have diabetes but blood sugars overall controlled. Treatment for the right thumb pain has included ydqd-zqt-coyphxg Motrin. No bracing no cortisone injections. 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 DX:Osteochondritis dissecans PAST SURGICAL HISTORY: Past Surgical History: Procedure Laterality Date CHOLECYSTECTOMY PROCEDURE: HISTORICAL CHOLECYSTECTOMY COLONOSCOPY 11/22/2021 PROCEDURE: HISTORICAL COLONOSCOPY; COMMENT: diverticulosis SOCIAL HISTORY: Social History Occupational History Not on file Tobacco Use Smoking status: Never Smokeless tobacco: Never Substance and Sexual Activity Alcohol use: No Drug use: No Sexual activity: Not on file FAMILY HISTORY: Family History Problem Relation Name Age of Onset Hypertension Mother Alzheimer's disease Mother Other (Other: car accident) Father Colon cancer Sister x 1 38.00 Family Status Relation Name Status Mother Alive Father Sister x 1 Alive Brother x 5 Alive MGM MGF PGM PGF No partnership data on file ACTIVE PROBLEMS LIST: Patient Active Problem List Diagnosis Allergic rhinitis Anxiety Carpal tunnel syndrome Chronic tension-type headache, intractable Diabetes mellitus (CMS/HCC) Diverticulosis Hyperlipidemia Internal hemorrhoids Osteochondritis dissecans Overweight (BMI 25.0-29.9) ACTIVE MEDICATIONS: Current Outpatient Medications on File Prior to Visit Medication Sig Dispense Refill atorvastatin (LIPITOR) 10 mg tablet Take 1 tablet (10 mg total) by mouth 1 (one) time each day. 90 each 3 blood sugar diagnostic (FreeStyle Lite Strips) test strip 1 Units. blood-glucose meter kit 1 Device by Not Applicable route. fenofibrate (LOFIBRA) 160 mg tablet TAKE 1 TABLET BY MOUTH DAILY 90 tablet 1 FREESTYLE LANCETS MISC 1 Units by Not Applicable route. ibuprofen (ADVIL,MOTRIN) 600 mg tablet Take 1 tablet (600 mg total) by mouth every 6 (six) hours ifneeded. melatonin 3 mg capsule Take 1 tablet by mouth at bedtime. 90 capsule 0 metFORMIN XR (GLUCOPHAGE-XR) 500 mg 24 hr tablet Take 1 tablet (500 mg total) by mouth 1 (one) timeeach day. 90 each 3 No current facility-administered medications on file prior to visit. Multiple ALLERGIES: No Known Allergies PHYSICAL EXAM: Visit Vitals Ht 1.626 m (64 ) Wt 78 kg (172 lb) BMI 29.52 kg/m?? OB Status Postmenopausal Smoking Status Never BSA 1.83 m?? APPEARANCE: Alert and in no acute distress EYES: conjunctivae and sclerae normal EXTREMITIES: Extremities warm and well perfused without clubbing, cyanosis, or edema Right thumb prominence to the basal joint. Mild swelling.Pain to palpation over right thumb basal joint. Mildly positive grind test. Mild to moderate laxity of right thumb MP joint she can make a full fist with hypothenar, thenar interosseous musculature intact. Full wrist flexion extension. Negative Tinel's test but positive Phalen's test VASCULAR:well perfused with normal pulses in the distal extremities and no peripheral edema noted NEURO: Awake, alert and oriented SKIN: Skin color, texture, turgor normal. No rashes or lesions. PSYCH: does not appear depressed or anxious and oriented to time, place and person LABS: None IMAGING: XR Wrist 3+ Views Right Date of Visit: 11/22/2024 Reason for visit: Right hand/wrist pain Views:AP, lateral oblique right wrist Comparison: None Findings: Right thumb moderate to severe basal joint arthritis with osteophyte formation. No fracture, dislocation lytic lesions. No widening DRUJ. Positive osteoarthritis radiocarpal joint. Impression: Moderate to severe right thumb arthritis ASSESSMENT AND PLAN: 1. CMC arthritis 2. Right wrist pain 3. Carpal tunnel syndrome of right wrist The details of the visit were reviewed with the patient. Pertinent history, and objective findings were reviewed, along with the diagnoses:Right thumb basal joint arthritis. She also has a mild component of carpal tunnel syndrome. The base issues right thumb pain. Schedule patient for options. Discussed anti- inflammatories, topical creams, bracing cortisone injection and briefly surgery. Did state that cortisone injections elevated blood sugars temporarily. Shewants to hold off on cortisone injection currently. Discussed jpkv-wam-zwghgde anti- inflammatory, topical cream and bracing. She is provided with a right thumb CMC brace. For the carpal tunnel syndrome discussed resting, cortisone injection and surgery but symptoms are mild right now. Patient will call for appointment if either CMC joint pain or carpal tunnel syndrome symptoms were to worsen. Laquita Bermeoanez acknowledges understanding of the above plan and agrees to follow recommendations and/or take medications as prescribed. DA Bills cc: Shannon Hendrix* documented in this encounter Plan of Treatment Upcoming Encounters Date Type Department Care Team (Late st Contact Info) Description 12/21/2024 10:30 AM EDT Office Visit Obstetrics and Gynecology [address] [phone] Clara Santillan CNM [address] [place] [address] 03/04/2025 2:30 PM EDT Office Visit [facility] - [address] [phone] Shannon Hendrix MD [address] [place] [address] documented as of this encounter Visit Diagnoses Diagnosis CMC arthritis- Primary Right wrist pain Pain in joint, forearm Carpal tunnel syndrome of right wrist documented in this encounter Orders Outpatient Referral Count Last Ordered Date Fir st Ordered Date AMB REFERRAL TO HAND SURGERY 1 11/22/2024 documented in this encounter Additional Health Concerns Assessment Noted Time PHQ-9 Depression Total Score: 0 10/28/19 25 1:54 PM EST documented as of this encounter Care Teams Inspector Of Weights And Measures Relationship Specialty Start Date End Date Shannon Hendrix MD [address] [place] [id number] PCP - General Internal Medicine 05/06/22 documented as of this encounter
--- OUTSIDE RECORDS SUMMARY | 2024-12-09 21:01 | XMS_ITS | Encounter Summary ---
Author Organization [employer] Address [address] [place] [address] Care Team Providers Care Hydrologic Engineer Name Role Phone Shannon Hendrix MD Primary Care Prov ider Reason for Visit * Reason Onset Date Comments Letter for School/Work 11/23/2024 Encounter Details Date Type Department Care Team (Late st Contact Info) Description 11/23/2024 Telephone Orthopedic Surgery - [place] [address] [place] [address] Shayna Castano PA [address] [place] [phone] Letter for School/Work Social History Tobacco Use Types Packs/Day Years [...] on file documented as of this encounter Progress Notes * Marysol Leroy - 11/23/2024 8:48 AM EST Pt calling, she was seen by Shayna Castano yesterday. Pt needs a note for work stating she was seen and an update on the condition of her hand. documented in this encounter Plan of Treatment Upcoming Encounters Date Type Department Care Team (Late st Contact Info) Description 12/21/2024 10:30 AM EDT Office Visit Obstetrics and Gynecology [address] [phone] Clara Santillan, [facility] [address] [place] [address] 03/04/2025 2:30 PM EDT Office Visit Adult Medicine [facility] - [address] [place] [address] Shannon Hendrix MD [address] [place] [phone] documented as of this encounter Visit Diagnoses Not on filedocumented in this encounter Additional Health Concerns Assessment Noted Time PHQ-9 Depression Total Score: 0 10/28/19 25 1:54 PM EST documented as of this encounter Care Teams Hydrologic Engineer Relationship Specialty Start Date End Date Shannon Hendrix MD [address] [place] [phone] PCP - General Internal Medicine 05/06/22 documented as of this encounter
--- OUTSIDE RECORDS SUMMARY | 2024-12-09 21:01 | XMS_ITS | Data Portability ---
Author Organization [facility], [address] Address [address] [place] [address] Care Team Providers Care Cloth Sander Name Role Phone [facility] Prim adina Care Provider Assessment No assessment recorded. Plan of Treatment Reminders Order Date Submit Date Provider Last Modified By Organization Details Last Modified Time Details Appointments None recorded. Lab urinalysis , dipstick 2022 023 [email or web address] [facility], [address] [place] [address], [phone], 17:06:03 culture, urine 2022 023 [facility], [address] [place] [address], [id number], 10:06:51 Referral None recorded. Procedures None recorded. Surgeries None recorded. Imaging None recorded. Medication Orders Macrobid 100 mg capsule 2022 023 [id number], [address] [place] [address], [id number], 17:06:10 Patient TargetsNo targets recorded. Patient Instructions Encounter Date Encounter Id Patient Instructions Last Modified By Organization Details Last Modified Time 12/30/2022 [id number] We recommend you get a repeat urinalysis in 2 weeks to ensure that any abnormalities have resolved. If urine abnormalities persist, you will likely need further testing or treatment. We will contact you within 3 to 5 days with the results of your lab test. If you have not heard back from us within that time frame, please feel free to contact our office regarding your results. Go to the Emergency Department immediately if your symptoms worsen or if you develop new symptoms that concern you. Drink plenty of fluids You should follow-up with your PCP in 4-5 days, or at any time if your condition does not improve or worsens. Any acute change should prompt a visit to the nearest Emergency Department. [email or web address] Not available 12/30/2022 17:06:02 Reason for Referral None Reported. Results Created Date Observation Date Name Description Value Unit Range Abnormal Flag Note LastModifiedBy Organization Detail LastModifiedTime 12/31/1901/01/2023 URINE CULTU REOSEI urine culture, routine FINAL REPORT Not Available [facility] ([facility]) [address] [place], [address], 01/01/2023 10:06:51 12/31/19 23 01/01/2023 URINE CULTU REOSEI result 1 NO GROWTH Not Available [facility] ([facility]) [address] [place], [address], 01/01/2023 10:06:51 12/31/19 23 12/30/2022 urina lysis , dipst ick Unknown Analyte Normal = light yellow Not Available [address], [address], 12/30/2022 16:46:03 12/31/19 23 12/30/2022 urina lysis , dipst ick Unknown Analyte Yellow Not Available [address] [place] [address], [address], 12/30/2022 16:46:03 12/31/19 23 12/30/2022 urina lysis , dipst ick Unknown Analyte Normal = clear Not Available [address], [address], 12/30/2022 16:46:03 03/27/12/30/2022 urina lysis , dipst ick Unknown Analyte Slight ly Cloudy Not Available [facility] [address] [place] [address], [place], [place], [address], 12/30/2022 16:46:03 12/31/19 23 12/30/2022 urina lysis , dipst ick Unknown Analyte Normal = negati ve Not Available [facility] [address], [place], [address], 12/30/2022 16:46:03 12/31/19 23 12/30/2022 urina lysis , dipst ick Unknown Analyte Negati ve Not Available [facility], [place], [address], 12/30/2022 16:46:03 12/31/19 23 12/30/2022 urina lysis , dipst ick Unknown Analyte Normal = Negati ve Not Available [facility] [address], [place], [address], 12/30/2022 16:46:03 12/31/19 23 12/30/2022 urina lysis , dipst ick Unknown Analyte Negati ve Not Available [facility], [place], [address], 12/30/2022 16:46:03 12/31/19 23 12/30/2022 urina lysis , dipst ick Unknown Analyte Normal = Negati ve Not Available [facility] [address] [place] [address], [place], [address], 12/30/2022 16:46:03 12/31/19 23 12/30/2022 urina lysis , dipst ick Unknown Analyte Negati ve Not Available [facility] [address] [place] [address], [place], [address], 12/30/2022 16:46:03 12/31/19 23 12/30/2022 urina lysis , dipst ick Unknown Analyte Normal = 1.010, 1.015, 1.020 Not Available [address] [address], [place], [address], 12/30/2022 16:46:03 12/31/19 23 12/30/2022 urina lysis , dipst ick Unknown Analyte 1.015 Not Available [address], [place], [address], 12/30/2022 16:46:03 12/31/19 23 12/30/2022 urina lysis , dipst ick Unknown Analyte Normal = Negati ve Not Available [facility] [address], [place], [address], 12/30/2022 16:46:03 12/31/19 23 12/30/2022 urina lysis , dipst ick Unknown Analyte Trace- intact Not Available [facility] [address], [place], [address], 12/30/2022 16:46:03 12/31/19 23 12/30/2022 urina lysis , dipst ick Unknown Analyte Normal = 6.5, 7.0, 7.5, 8.0 Not Available [address], [place], [address], 12/30/2022 16:46:03 12/31/19 23 12/30/2022 urina lysis , dipst ick Unknown Analyte 7.0 Not Available [address], [place], [address], 12/30/2022 16:46:03 12/31/19 23 12/30/2022 urina lysis , dipst ick Unknown Analyte Normal = Negati ve Not Available [facility], [place], [address], 12/30/2022 16:46:03 12/31/19 23 12/30/2022 urina lysis , dipst ick Unknown Analyte Negati ve Not Available [facility] [address], [place], [address], 12/30/2022 16:46:03 12/31/19 23 12/30/2022 urina lysis , dipst ick Unknown Analyte Normal = 0.2, 1.0 Not Available [facility] [address], [place], [address], 12/30/2022 16:46:03 12/31/19 23 12/30/2022 urina lysis , dipst ick Unknown Analyte 4.0 E.U./d L Not Available [facility] [address], [place], [address], 12/30/2022 16:46:03 12/31/19 23 12/30/2022 urina lysis , dipst ick Unknown Analyte Normal = Negati ve Not Available [facility] [address], [place], [address], 12/30/2022 16:46:03 12/31/19 23 12/30/2022 urina lysis , dipst ick Unknown Analyte Negati ve Not Available [facility] [address], [place], [address], 12/30/2022 16:46:03 12/31/19 23 12/30/2022 urina lysis , dipst ick Unknown Analyte Normal = Negati ve Not Available [facility] [address], [place], [address], 12/30/2022 16:46:03 12/31/19 23 12/30/2022 urina lysis , dipst ick Unknown Analyte Negati ve Not Available [address] [address] [place] [address], [place], [address], 12/30/2022 16:46:03 Result Notes None recorded. Problems Name Problem SNOMED Code Status Onset Date Resolution Date Notes Provider Name and Address Organization Details Recorded Time Hypercholestero lemia 41893077 Active 2022 REG mcnamara [place] - [facility] 16:44:06 Diabetes mellitus 66832664 Active 2022 REG mcnamara [place] - [facility] 16:44:10 Problem Notes None recorded. Medical Equipment None Reported. Allergies No known drug allergies Medications Name Sig Start Date Stop Date Status Note LastModified by Organization Details LastModified Time Macrobid 100 mg capsule Take 1 capsule every 12 hours by oral route with meals for 7 days. 2022 active Not Available Not Available Not Avai lable atorvastatin active Not Available Not Available Not Available metformin active Not Available Not Lynda ilable Not Available fenofibrate active Not Available Not A vailable Not Available Vitals Date Recorded Body weight Body mass index (BMI) Body height Pain severity - 0-10 verbal numeric rating [Score] - Reported Respiratory rate Body temperature Oxygen saturation Oxygen saturation in Arterial blood by Pulse oximetry Heart rate Systolic blood pressure Diastolic blood pressure Provider Name and Address Organization Details Last Updated DateTime 3 58401.1 9 g 27.3 kg/m2 162.56 cm 1 18 /min 97.3 [degF] 97 % 97 % 73 /min 117 mm[Hg] 78 mm[Hg] REG GREEN PA - [facility] 16:45:58 Social History Question Answer Notes LastModified by Organizat ion Details LastModified Time Tobacco Smoking Status Never Smoker REG mcnamara PA - [facility] 12/30/2022 16:44:52 What Is Your Level Of Alcohol Consumption? None Information not available 12/30/2022 Do You Use Any Illicit Or Recreational Drugs? No Information not available 12/30/2022 Have You Recently Traveled Abroad? No Information not available 12/30/2022 Do You Or Have You Ever Used Any Other Forms Of Tobacco Or Nicotine? No Information not available 12/30/2022 Sex: Unknown Functional Status None recorded. Mental Status None recorded. Family History Relationship Description Onset Age of this Age Resolved Age Notes LastModified by Organization Details LastModified Time Mother Diabetes mellitus Not available 2022 16:44:34 Mother Hypertensive disorder Not available 2022 16:44:43 Medical History No medical history recorded. Gynecological HistoryNo gynecological history recorded. Obstetrics History GPAL:G 0 P 0 0 0 0 Immunizations Vaccine Type Date Status Note Provider Nam e and Address Organization Details Recorded Time COVID-19, mRNA, LNP-S, PF, 100 mcg/0.5mL dose or 50 mcg/0.25mL dose 10/16/2021 completed REG DEPINTO null, PA - [facility] 12/30/2022 16:43:36 COVID-19, mRNA, LNP-S, PF, 100 mcg/0.5mL dose or 50 mcg/0.25mL dose 12/28/2021 completed REG DEPINTO null, PA - [facility] 12/30/2022 16:43:36 Tdap 10/14/2022 completed REG DEPINTO null, PA - [facility] 12/30/2022 16:43:36 Past Encounters Encounter ID Performer Location Encounter Start Date Encounter Closed Date Diagnosis/Indication Diagnosis SNOMED-CT Code Diagnosis ICD10 Code Diagnosis Note [id number] [facility] [address] [place] [address] 03/28/2022 17:10:28 03/28/2022 18:26:17 [id number] [facility] [address] [place] [address] 02/23/2017 10:16:09 02/23/2017 11:18:18 [id number] [facility] [address] [place] [address] 07/05/2020 18:21:54 07/05/2020 19:13:54 [id number] [facility] [address] [place] [address] 12/08/2018 08:59:52 12/08/2018 09:37:17 [id number] [facility] [address] [place] [address] 06/23/2019 16:14:12 06/23/2019 17:01:01 [id number] [facility] [address] [place] [address] 11/21/2015 17:01:06 11/21/2015 18:08:22 [id number] [address] [address] [place] [address] 11/08/2021 16:14:51 11/08/2021 16:49:54 [id number] [address] [facility] [place] [address] 01/10/2021 08:33:00 01/10/2021 09:16:05 [id number] [facility] [address] [place] [address] 01/11/2022 17:10:44 01/11/2022 19:17:43 [id number] [facility] [address] [place] [address] 09/01/2022 08:17:47 09/01/2022 10:04:00 [id number] [facility] [address] [place] [address] 08/26/2022 08:05:17 08/26/2022 08:48:51 [id number] Momo Mariano NP [address] [address] [place] [address] 12/30/2022 14:18:22 12/30/2022 17:09:52 Acute urinary tract infection 700230063 N39.0 Health Concerns Section Related Observation LastModified by Organization Detai ls LastModified Time None Recorded Concern Status LastModified by Organization Details LastModified Time None Recorded Advance Directives Directive None Recorded Payers Encounter Date Sequence Insurance Name Policy Number Policy Mcbride Covered Member ID Mcbride Member ID Guarantor Name 01/11/2022 1 [place] [facility] [place] [place] [id number] Laquita L Walsh [id number] Laquita L Walsh 03/28/2022 1 [place] [facility] [place] [place] [id number] Laquita L Walsh [id number] Laquita L Walsh 08/26/2022 1 [place] [facility] [place] [place] [id number] Laquita L Walsh [id number] Laquita L Walsh 09/01/2022 1 [place] [facility] [place] [id number] Laquita L Walsh [id number] Laquita L Walsh 12/30/2022 1 [place] [facility] [place] [place] [id number] Laquita L Walsh [id number] Laquita L Walsh Notes Date Note Type Note Provider Name and Address Organization Details Recorded Time 3 text/html Urinary Complaint FemaleReported bypatient.source of patient informationInformation obtained from patient; Patient arrived at Urgent Care ambulatory UTI Symptoms:no blood in the urine; no pain during urination; no vaginal discharge; no pain in the flank; no fever/chills; no incontinence; no recurrent UTI; no known exposure to STD;urgency;urinary frequency Severity:mild Duration:1 days Modifying Factors:nothing gives reliefNotes:frequency and urgency x 1 day. denies any fever or fever with chills, denies any History of renal stone or bladder issues. frequency and urgency x 1 day. denies any fever or fever with chills, denies any History of renal stone or bladder issues. Momo Mariano NP [address] [place], [address], [place] - [facility] 12/30/2022 17:06:36 OBGyn Episode No OBEpisode recorded.
[2024-12-09] MEDS: 0.9 % Sodium Chloride 1,000 ML 999 ML IV (21:23)
[2024-12-09] MEDS: iohexoL 350 MG/ML 100 ML INFUS..BTL 85 ML IV (21:39)
[2024-12-09 22:31] VITALS: BP 148/94; PULSE 74; RESP 16; TEMP 37; O2SAT 99
[2024-12-09 23:13] VITALS: BP 148/94; PULSE 74; RESP 16; TEMP 37; O2SAT 99
== END 2024-12-09 23:13 | disposition home or self-care (01) ==
PROVIDERS: Physician Assistant Medical; Emergency Provider Emergency Medicine; PCP Internal Medicine
DX: K63.89 Other specified diseases of intestine (principal); R10.32 Left lower quadrant pain; R10.2 Pelvic and perineal pain; R10.814 Left lower quadrant abdominal tenderness; Z79.899 Other long term (current) drug therapy
CPT/HCPCS: 36415; 74177; 76830; 76856; 80048; 80076; 81003; 84702; 85025; 99284; Q9967

== ENCOUNTER → 2024-12-09 16:24 | Outpatient (BNV) | payer BC, SELFPAY | PROVIDERS: Visit Provider Radiology Diagnostic Radiology | DX: R10.2 Pelvic and perineal pain (principal) | CPT/HCPCS: 76830; 76856 ==

== ENCOUNTER 2025-03-29 06:12 | Emergency (ER) | payer BC, SELFPAY ==
--- NOTE | ~2025-03-29 | XR_ITS ---
EXAMINATION: XR CHEST CLINICAL INFORMATION: persistent cough COMPARISON: October 31, 2021. TECHNIQUE: 2 views of the chest were obtained. FINDINGS: No consolidation, pleural fissure pneumothorax. Mild prominent interstitial lung markings No hyperinflation. Cardiomediastinal silhouette size is normal. Multilevel marginal osteophyte formation and endplate sclerosis and decreased intervertebral disc height throughout the axial skeleton. S-shaped curvature of the thoracolumbar spine. Vascular clips right upper quadrant abdomen. XR/XR chest 2V IMPRESSION: Acute small airway inflammatory process cannot be excluded. Spondylosis and scoliosis, thoracolumbar spine. Status post cholecystectomy. Electronically signed by: Adria Anne MD 03/29/2025 08:53 AM EDT
[2025-03-29 06:24] VITALS: BP 155/97; PULSE 91; RESP 18; TEMP 37.9; O2SAT 98; BMI 29.3
--- OUTSIDE RECORDS SUMMARY | 2025-03-29 06:47 | XMS_ITS | Clinical Summary ---
Author Organization [facility] [address] [place] [address] [place] [address] [place] [address] Phone Care Team Providers Care Thickener Operator Name Role Phone Shannon Hendrix MD Primary Care Prov ider Allergies No known active allergies Medications FREESTYLE LANCETS MISC 1 Units by Not Applicable route. 06/28/20 24 Active ibuprofen (ADVIL,MOTRIN) 600 mg tablet Take 1 tablet (600 mg total) by mouth every 6 (six) hours if needed. 06/28/20 24 Active blood sugar diagnostic (FreeStyle Lite Strips) test strip 1 Units. 12/01/19 24 Active blood-glucose meter kit 1 Device by Not Applicable route. 06/11/20 22 Active atorvastatin (LIPITOR) 10 mg tablet Take 1 tablet (10 mg total) by mouth 1 (one) time each day. 90 each 3 10/28/19 25 026 Active metFORMIN XR (GLUCOPHAGE-XR ) 500 mg 24 hr tablet Take 1 tablet (500 mg total) by mouth 1 (one) time each day. 90 each 3 10/28/19 25 026 Active melatonin 3 mg tablet TAKE 1 TABLET BY MOUTH EVERY NIGHT AT BEDTIME 90 tablet 03/10/20 25 Active fenofibrate (LOFIBRA) 160 mg tablet TAKE 1 TABLET BY MOUTH DAILY 90 tablet 1 03/10/20 25 Active fenofibrate (LOFIBRA) 160 mg tablet TAKE 1 TABLET BY MOUTH DAILY 90 tablet 1 09/27/20 24 025 Discontinued melatonin 3 mg capsule Take 1 tablet by mouth at bedtime. 90 capsule 10/28/19 25 025 Discontinued Active Problems Problem Noted Date Diagnosed Date ASCUS with positive high risk HPV cervical 01/24 Overview (01/28/2025): 12/21/24 ASCUS +HPV not 16/18, bx neg; needs cotesting in one year Diabetes mellitus ([facility] V24, [facility] V28) 03/2022 Assessment & Plan (10/28/2024 2:27 PM EST): Good control of diabetes. Last A1C: 6.5. Currently on metformin 500 mg a day. Patient will continue with yearly Podiatric and Ophthomologic evaluations. We will check a hemoglobin A1c, electrolytes, BUN, creatinine before her next visit. Patient will follow up in 4 months Orders: Comprehensive metabolic panel; Future Hemoglobin A1c; Future Lipid panel with reflex to direct LDL; Future Microalbumin creatinine urine ratio; Future Overweight (BMI 25.0-29.9) 08/06/2021 Chronic tension-type headache, intractable 10/22 Hypercholesterolemia 11/10/2017 Assessment & Plan (10/28/2024 2:27 PM EST): Given the patients cardiac risk profile, the patient requires an LDL cholesterol of less than 70. Currently on Atorvastatin 10mg and Fenofibrate for elevated TRG. I have instructed the patient on the principles of a low cholesterol diet and the importance of regular exercise. We will check a cholesterol profile before her next visit. 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 Diverticulosis 05/09/2017 Anxiety 11/05/2016 Allergic rhinitis 05/01/2016 Internal hemorrhoids 08/16/2015 Carpal tunnel syndrome 12/25/2013 Encounters Date Type Department Care Team Description 01/26/2025 Telephone Obstetrics and Gynecology [facility] [place] [address] [place] [phone] Jewell Ayon MD Referral 01/26/2025 Telephone Obstetrics and Gynecology - [place] [address] [place] [phone] Shara Dill CNM Vaginal Bleeding; Biopsy 01/24/2025 2:45 PM EDT Procedure visit Obstetrics and Gynecology [address] [phone] Shara Dill, HUNTER ASCUS with positive high risk HPV cervical (Primary Dx) from Last 3 Months Immunizations Name Administration Dates Next Due Moderna SARS-CoV-2 COVID-19, mRNA, LNP-S, preservative free 12/28/2021,10/16/2021 Pneumococcal conjugate 20 va lent (Prevnar 20, PCV 20) 2mo and older 10/14/2022 Tdap Tetanus diptheria acell ular pertussis (Boostrix; Adacel) 7yo and older 10/14/2022 Surgical History Surgery Date Site/Laterality Comments CHOLECYSTECTOMY PROCEDURE: HISTORICAL CHOLECYSTECTOMY COLONOSCOPY 11/22/2021 PROCEDURE: HISTORICAL COLONOSCOPY; COMMENT: diverticulosis Medical History Medical History Date Comments Allergic rhinitis 05/01/2016 DX:Allergic rh initis Anxiety 11/05/2016 DX:Anxiety Carpal tunnel syndrome 12/25/2013 DX:Carpal tunnel syndrome Diverticulosis 05/09/2017 DX:Diverticulosi s Hyperlipidemia 11/10/2017 DX:Hyperlipidemi a Internal hemorrhoids 08/16/2015 DX:Internal hemorrhoids 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 DX:Ost eochondritis dissecans Diverticulitis DX:Diverticuliti s Family History Medical History Relation Name Comments Other: car accident Father Alzheimer's disease Mother Hypertension Mother Colon cancer Sister x 1 Breast cancer Neg Hx Ovarian cancer Neg Hx Uterine cancer Neg Hx Relation Name Status Comments Brother x 5 Alive Father Maternal Grandfather Maternal Grandmother Mother Paternal Grandfather Paternal Grandmother Sister x 1 Alive Social History Tobacco Use Types Packs/Day Years Used Date Smoking Tobacco: Never Smokeless Tobacco: Never Tobacco Cessation:Counseling Given: Not Answered Alcohol Use Standard Drinks/Week Comments No 0 [...] on file Sexual Orientation Not on file Obstetrics History Para Term AB IAB SAB Ectopic Multiple Livin g Live Births 2 2 2 2 Date Outcome GA Total Labor Labor/2nd/3rd Weight Sex Type Anes PTL Nicole A1 A5 Name Clin Term Term Last Filed Vital Signs Vital Sign Reading Time Taken Comments Blood Pressure 137/77 01/24/2025 2:44 PM EDT Pulse 87 01/24/2025 2:44 PM EDT Temperature 36.4 C (97.6 F) 10/28/2024 1:51 PM EST Respiratory Rate 12 01/24/2025 2:44 PM EDT Oxygen Saturation - - Inhaled Oxygen Concentration - - Weight 76.7 kg (169 lb) 01/24/2025 2:44 PM EDT Height 162.6 cm (5' 4 ) 01/24/2025 2:44 PM EDT Body Mass Index 29.01 01/24/2025 2:44 PM EDT Plan of Treatment Upcoming Encounters Date Type Department Care Team (Late st Contact Info) Description 06/15/2025 8:45 AM EDT Office Visit Adult Medicine [facility] [address] [place] [phone] Shannon Hendrix MD [address] [place] [id number] Health Maintenance Due Date Last Done Comments Hepatitis B Vaccines (1 of 3 - 19+ 3-dose series) 1985 Zoster Vaccines (1 of 2) 2016 Diabetes: Annual Retina Eye Exam 01/26/2025 01/27/2024 Diabetes: Annual Foot Exam 03/16/2025 03/16/2024 Diabetes: Blood Sugar Contro l Test (HGBA1C) 07/13/2025 01/11/2025, 07/30/2024, 05/03/2024 Depression Screening 10/28/2025 10/28/2024 Social Influencers of Health Screening 10/28/2025 10/28/2024 Diabetes: Annual Urine Albumin-Creatinine Ratio (uACR) 01/11/2026 01/11/2025, 09/22/2023 Diabetes: Annual GFR (Glomerular Filtration Rate) 01/11/2026 01/11/2025, 07/30/2024, 05/03/2024 Breast Cancer Screening 09/24/2026 09/24/20 24, 09/19/2023, 09/17/2022 Colorectal Cancer Screening: Colonoscopy 11/22/2026 11/22/2021 Cervical Cancer Screening: HPV 12/21/2029 12/21/2024, 12/21/2024 Cholesterol Screening (Lipid Panel) 01/11/2030 01/11/2025, 07/30/2024, 05/03/2024 DTaP,Tdap,and Td Vaccines (2 - Td or Tdap) 10/14/2032 10/14/2022 COVID-19 Vaccine Discontinued 12/28/2021, 10/16/2021 Pneumococcal Vaccine: 50+ Years Completed 10/14/2022 Pneumococcal Vaccine: Pediatrics (0 to 5 Years) and At-Risk Patients (6 to 64 Years) Completed 10/14/2022 HIV Screening Completed 12/21/2024 Hepatitis C Screening Completed 12/21/2024 , 06/12/2020 HIB Vaccines Aged Out No longer eligi ble based on patient's age to complete this topic HPV Vaccines Aged Out No longer eligi ble based on patient's age to complete this topic Hepatitis A Vaccines Aged Out No long er eligible based on patient's age to complete this topic IPV Vaccines Aged Out No longer eligi ble based on patient's age to complete this topic Influenza Vaccine Discontinued MMR Vaccines Aged Out No longer eligi ble based on patient's age to complete this topic Meningococcal ACWY Vaccine Aged Out N o longer eligible based on patient's age to complete this topic Meningococcal B Vaccine Aged Out No l onger eligible based on patient's age to complete this topic RSV Immunization Patients Under 20 months Aged Out No longer eligible based on patient's age to complete this topic Varicella Vaccines Aged Out No longer eligible based on patient's age to complete this topic Procedures Procedure Name Priority Date/Time Associated Diagnosis Comments TISSUE EXAM Routine 01/24/2025 3:47 PM EDT ASCUS with positive high risk HPV cervical NM BIOPSY CERVIX Routine 01/24/2025 3:20 PM EDT ASCUS with positive high risk HPV cervical COMPREHENSIVE METABOLIC PANEL Routine 01/11/2025 7:39 AM EDT Type 2 diabetes mellitus without complication, without long-term current use of insulin ([facility]/HCC V24, CMS/HCC V28) Mixed hyperlipidemia HEMOGLOBIN A1C Routine 01/11/2025 7:39 AM EDT Type 2 diabetes mellitus without complication, without long-term current use of insulin (CMS/HCC V24, CMS/HCC V28) Mixed hyperlipidemia LIPID PANEL WITH REFLEX TO DIRECT LDL Routine 01/11/2025 7:39 AM EDT Type 2 diabetes mellitus without complication, without long-term current use of insulin (CMS/HCC V24, CMS/HCC V28) Mixed hyperlipidemia MICROALBUMIN CREATININE URINE RATIO Routine 01/11/2025 7:39 AM EDT Type 2 diabetes mellitus without complication, without long-term current use of insulin (CMS/HCC V24, CMS/HCC V28) Mixed hyperlipidemia HEPATITIS C ANTIBODY Routine 12/21/2024 11:17 AM EDT Screen for STD (sexually transmitted disease) HIV 1, 2 ANTIBODY, P24 ANTIGEN WITH REFLEX TO DIFFERENTIATION Routine 12/21/2024 11:17 AM EDT Screen for STD (sexually transmitted disease) HPV WITH REFLEX GENOTYPE Routine 12/21/2024 10:49 AM EDT Encounter for gynecological examination without abnormal finding MG MAMMO DIGITAL SCREENING W MISAEL BILAT Routine 09/24/2024 3:07 PM EST Encounter for screening mammogram for breast cancer from Last 3 Months or Most Recently Relevant to Health Maintenance Results * Tissue exam (01/24/2025 3:47 PM EDT) Final Diagnosis Cervix, 10 o'clock, biopsy: Chronic cervicitis with extensively denuded epithelium No squamous intraepithelial lesion or glandular neoplasm identified on deeper levels 01/28/2025 8:52 AM EDT [facility] Clinical Information ASCUS with positive high risk HPV cervical R87.610, R87.810 01/28/2025 8:52 AM EDT [facility] Gross Description A. Cervix, 10 o'clock: Labeled cervix and further designated 10:00 on the lid. Received in formalin is a 0.5 cm irregular steiner-white rubbery tissue fragment which is wrapped in paper and submitted in toto in one cassette, one piece, multiple levels on one slide. BONIFACIO 01/28/2025 8:52 AM EDT [facility] Disclaimer Unless otherwise specified, all tissue is 10% NB formalin fixed and paraffin embedded. 01/28/2025 8:52 AM EDT [facility] Tissue Cervix uteri structure / Unknown Non-blood Collection / Unknown 01/24/2025 3:47 PM EDT 01/24/2025 3:47 PM EDT Shara Dill CNM LAB PATHOLOGY ORDERABLES Fi nal Result [facility] [address] [place] [address], [place] [phone] * NM BIOPSY CERVIX (01/24/2025 3:20 PM EDT) Shara Woodard CNM - 01/24/2025 3:20 PM EDT Shara Dill CNM 01/24/2025 3:22 PM Biopsy of cervix only Indication: ASC-US and POS HR HPV Date/Time: 01/24/2025 3:20 PM Performed by: Shara Dill CNM Authorized by: Shara Dill CNM Informed Consent: Patient questions answered: yes Patient agrees, verbalizes understanding, and wants to proceed: yes Consent given by: Patient Informed consent discussion completed by Physician/LUCILLE with patient: Written; patient signed and dated; copy to patient Pre-procedure: Negative urine test: Not indicated Negative serum test: Not indicated Prepped with: acetic acid Procedure: Brethren speculum was placed in the vagina: yes Cervical biopsy performed with a cervical biopsy punch: yes Hemostasis achieved: yes Hemostasis achieved with: Monsel's solution Specimen to pathology: yes Post-procedure: Findings: transition zone was seen in entirety Impression: normal appearance Colposcopy satisfactory: yes Patient tolerance of procedure: Patient tolerated the procedure well with no immediate complications Comments: no mosaicism, punctation, abnormal vasculature, or lesions; cervical biopsy taken at 10 o'clock Shara Dill CNM IN CLINIC/BEDSIDE ORDERABLE S Final Result * (ABNORMAL) Lipid panel with reflex to direct LDL (01/11/2025 7:39 AM EDT) Cholesterol 173 0 - 200 mg/dL LAB CHEMISTRY METHOD 01/11/2025 12:21 PM EDT [facility] Triglycerides 124 0 - 150 mg/dL LAB CHEMISTRY METHOD 01/11/2025 12:21 PM EDT [facility] HDL 47 >=40 mg/dL LAB CHEMISTRY METHOD 01/11/2025 12:21 PM EDT [facility] LDL Calculated 101(H) 0 - 100 mg/dL LAB CHEMISTRY METHOD 01/11[facility]2025 [facility] VLDL Cholesterol Rocael 24.8 mg/dL LAB CHEMISTRY METHOD 01/11/2025 12:21 PM EDT [facility] Non HDL Chol. (LDL+VLDL) 126 <145 mg/dL LAB CHEMISTRY METHOD 01/11/2025 12:21 PM [facility] Chol/HDL Ratio 3.7 0.0 - 4.4 LAB CHEMISTRY METHOD 01/11/2025 12:21 PM [facility] Blood Venous blood specimen / Unknown Venipuncture / Unknown 01/11/2025 7:39 AM EDT 01/11/2025 7:39 AM EDT Shannon Hendrix MD LAB BLOOD ORDERABL ES Final Result [facility] [address] [place] [address], * (ABNORMAL) Microalbumin creatinine urine ratio (01/11/2025 7:39 AM EDT) Creatinine, Urine 193.0 mg/dL LAB CHEMISTRY METHOD 01/11/2025 12:23 PM EDT [facility] Microalb, Ur 37.5(H) 0.0 - 29.0 mg/L LAB CHEMISTRY METHOD 01/11/2025 12:23 PM EDT [facility] Microalb/Crea t Ratio 19 <30 mg/g creat LAB CHEMISTRY METHOD 01/11/2025 12:23 PM EDT [facility] Urine Urine specimen obtained by clean catch procedure / Unknown Non-blood Collection / Unknown 01/11/2025 7:39 AM EDT 01/11/2025 7:39 AM EDT Shannon Hendrix MD LAB URINE ORDERABL ES Final Result Performing Organization Address [facility]/ZIP Co de Phone Number [facility] [address] [place] [address], [place] [phone] * Hemoglobin A1c (01/11/2025 7:39 AM EDT) Hemoglobin A1C 6.3 <6.5 % LAB CHEMISTRY METHOD 01/11/2025 2:02 PM EDT [facility] Mean Bld Glu Estim. 134 mg/dL LAB CHEMISTRY METHOD 01/11/2025 2:02 PM EDT [facility] Blood Venous blood specimen / Unknown Venipuncture / Unknown 01/11/2025 7:39 AM EDT 01/11/2025 7:39 AM EDT Shannon Hendrix MD LAB BLOOD ORDERABL ES Final Result [facility] [address] [place] [address], [place] [phone] * (ABNORMAL) Comprehensive metabolic panel (01/11/2025 7:39 AM EDT) Sodium 139 133 - 145 mmol/L LAB CHEMISTRY METHOD 01/11/2025 12:21 PM EDT [facility] Potassium 3.9 3.5 - 5.5 mmol/L LAB CHEMISTRY METHOD 01/11/2025 12:21 PM [facility] Chloride 106 96 - 110 mmol/L LAB CHEMISTRY METHOD 01/11/2025 12:21 PM [facility] CO2 26 21 - 32 mmol/L LAB CHEMISTRY METHOD 01/11/2025 12:21 PM [facility] Anion Gap 7 3 - 11 LAB CHEMISTRY METHOD 01/11/2025 12:21 PM [facility] Glucose 127(H) 70 - 100 mg/dL LAB CHEMISTRY METHOD 01/11/2025 12:21 PM [facility] BUN 14 5 - 25 mg/dL LAB CHEMISTRY METHOD 01/11/2025 12:21 PM [facility] Creatinine 0.88 0.50 - 1.10 mg/dL LAB CHEMISTRY METHOD 01/11/2025 12:21 PM [facility] eGFR 76 >=60 mL/min/1. 73m2 LAB CHEMISTRY METHOD 01/11/2025 12:21 PM [facility] Comment:Calculation based on the Chronic Kidney Disease Epidemiology Collaboration (CKD-EPI) equation refit without adjustment for race. BUN/Creatinine Ratio 15.9 LAB CHEMISTRY METHOD 01/11/2025 12:21 PM [facility] Calcium 10.4 8.5 - 10.5 mg/dL LAB CHEMISTRY METHOD 01/11/2025 12:21 PM [facility] AST (SGOT) 21 10 - 42 unit/L LAB CHEMISTRY METHOD 01/11/2025 12:21 PM [facility] ALT (SGPT) 38 10 - 60 unit/L LAB CHEMISTRY METHOD 01/11/2025 12:21 PM [facility] Alkaline Phosphatase 71 42 - 121 unit/L LAB CHEMISTRY METHOD 01/11/2025 12:21 PM [facility] Total Protein 8.3(H) 6.0 - 8.0 g/dL LAB CHEMISTRY METHOD 01/11/2025 12:21 PM EDT [facility] Albumin 4.6 3.2 - 5.0 g/dL LAB CHEMISTRY METHOD 01/11/2025 12:21 PM EDT [facility] Total Bilirubin 0.9 0.0 - 1.4 mg/dL LAB CHEMISTRY METHOD 01/11/2025 12:21 PM EDT [facility] Blood Venous blood specimen / Unknown Venipuncture / Unknown 01/11/2025 7:39 AM EDT 01/11/2025 7:39 AM EDT us Shannon Hendrix MD LAB BLOOD ORDERABL ES Final Result Performing Organization Address [facility]/ZIP Co de Phone Number [facility] [address] [place] [address], [place] [phone] * Hepatitis C antibody (12/21/2024 11:17 AM EDT) Hepatitis C Antibody Negative Negative LAB CHEMISTRY METHOD 12/21/2024 4:06 PM EDT [facility] Blood Venous blood specimen / Unknown Venipuncture / Unknown 12/21/2024 11:17 AM EDT 12/21/2024 11:17 AM EDT us Clara Santillan CNM LAB BLOOD ORDERABLES Final Res ult [facility] [address] [place] [address], [place] [phone] * HIV 1,2 antibody, p24 antigen with reflex to differentiation (12/21/2024 11:17 AM EDT) HIV Combo AB/AG Negative Negative LAB CHEMISTRY METHOD 12/21/2024 4:06 PM EDT [facility] Blood Venous blood specimen / Unknown Venipuncture / Unknown 12/21/2024 11:17 AM EDT 12/21/2024 11:17 AM EDT Narrative [facility] - 12/21/2024 4:06 PM EDT This assay is a 4th generation assay allowing for earlier detection of HIV infection by detecting the presence of the HIV-1 p24 antigen as well as the traditional antibodies to HIV type 1 (including group O) and type 2. Use of a 4th generation assay is the current CDC recommendation for HIV screening. Clara SIFUENTES LAB BLOOD ORDERABLES Final Res ult [facility] [address] [place] [address], [place] [phone] * (ABNORMAL) HPV with reflex genotype (12/21/2024 10:49 AM EDT) HPV Positive( A) Negative LAB MICROBIOLOGY METHOD 12/22/2024 3:09 PM EDT [facility] Brushing/Spatula Cervix uteri structure / Unknown 12/21/2024 10:49 AM EDT 12/22/2024 7:39 AM EDT Clara SIFUENTES LAB MOLECULAR DIAGNOSTICS ORDE RABLES Final Result Performing Organization Address [facility]/ZIP Co de Phone Number [facility] [address] [place] [address], [place] [phone] * MG Mammo Digital Screening w Misael bilat (09/24/2024 3:07 PM EST) Anatomical Region Laterality Modality Breast Bilateral Mammography 09/27/2024 12:2 1 PM EST Impressions 09/27/2024 12:28 PM EST 1. No mammographic evidence of malignancy 2. Scattered fibroglandular tissue BI-RADS CATEGORY: 2 - BENIGN RECOMMENDATION: Screening bilateral mammogram is recommended in 1 year. Mammo Location: [facility], [address] [place] [address], [id number], . -------- FINAL REPORT -------- Dictated By: Fariba Dorsey Dictated Date: 09/27/2024 12:21 ET Assigned Physician: Fariba Dorsey Reviewed and Electronically Signed By: Fariba Dorsey Signed Date: 09/27/2024 12:28 ET Workstation ID: [id number] Transcribed By: Self Edit Transcribed Date: 09/27/2024 12:21 ET Narrative 09/27/2024 12:28 PM EST A BILATERAL DIGITAL 3D SCREENING MAMMOGRAPHY HISTORY: Routine screening. COMPARISON: Multiple priors dating back to 03/13/2020 Technique: Bilateral full field digital mammography (3D) was performed using standard CC and MLO projections CAD was used to evaluate this mammogram. FINDINGS: Right: No suspicious masses, groups of microcalcification or areas of architectural distortion identified. Stable typically benign parenchymal asymmetries. Left: No suspicious masses, groups of microcalcification or areas of architectural distortion identified. Stable typically benign parenchymal asymmetries. BREAST DENSITY: B - There are scattered areas of fibroglandular density. Procedure Note Fariba Dorsey MD - 09/27/2024 A BILATERAL DIGITAL 3D SCREENING MAMMOGRAPHY HISTORY: Routine screening. COMPARISON: Multiple priors dating back to 03/13/2020 Technique: Bilateral full field digital mammography (3D) was performedusing standard CC and MLO projections CAD was used to evaluate this mammogram. FINDINGS: Right: No suspicious masses, groups of microcalcification or areas ofarchitectural distortion identified. Stable typically benign parenchymalasymmetries. Left: No suspicious masses, groups of microcalcification or areas ofarchitectural distortion identified. Stable typically benign parenchymalasymmetries. BREAST DENSITY: B - There are scattered areas of fibroglandular density. IMPRESSION: 1. No mammographic evidence of malignancy 2. Scattered fibroglandular tissue BI-RADS CATEGORY: 2 - BENIGN RECOMMENDATION: Screening bilateral mammogram is recommended in 1 year. Mammo Location: [facility], [address] [place] [address], [id number], . -------- FINAL REPORT -------- Dictated By: Fariba Dorsey Dictated Date: 09/27/2024 12:21 ET Assigned Physician: Fariba Dorsey Reviewed and Electronically Signed By: Fariba Dorsey Signed Date: 09/27/2024 12:28 ET Workstation ID: [id number] Transcribed By: Self Edit Transcribed Date: 09/27/2024 12:21 ET Shannon Hendrix MD IMG BI PROCEDURES Final Result from Last 3 Months or Most Recently Relevant to Health Maintenance Insurance [facility] Care Teams Thickener Operator Relationship Specialty Start Date End Date Shannon Hendrix MD [address] [place] [id number] PCP - General Internal Medicine 05/06/22
[2025-03-29 07:21] LABS: Influenza A PCR NEGATIVE (Negative); Influenza B PCR NEGATIVE (Negative); Resp Syncy Virus RNA Qual PCR NEGATIVE (Negative); SARS COV2 PCR INHOUSE NEGATIVE (Negative)
--- NOTE | 2025-03-29 08:28 | ED.GENADULT ---
HPI - General Adult General Chief complaint: Upper Respiratory Symptoms Stated complaint: sore throat + coughing Time Seen by Provider: 03/29/25 07:36 History of Present Illness ED Provider: Kathie NAVARRO narrative: The patient is a 59-year-old female with a history of diabetes who has been having problems with a cough for about 4 weeks. She was seen at an urgent care center 12 days ago and prescribed a course of steroids and doxycycline. She does not feel she has gotten any relief from this treatment. She continues to have a persistent dry cough that is very irritating. She comes to the emergency room because of this persistent dry cough. She does not feel she has had any definite fevers. She does not have any history of asthma, COPD, or smoking. No sore throat. No abdominal pain. No nausea or vomiting. No sputum production. Related Data Previous Rx's ?Medication ?Instructions ?Recorded cyclobenzaprine 10 mg tablet 10 mg PO TID PRN pain #14 tabs 04/26/21 ibuprofen 400 mg tablet 400 mg PO Q6H PRN pain #20 tabs 04/26/21 epqpbeaqueshsda-cdatgmmqvgtemvi-TI 7.5 ml PO Q4-6H PRN cold symptoms 10/31/21 2 mg-30 mg-10 mg/5 mL oral syrup #118 mL (Bromfed DM) cyclobenzaprine 10 mg tablet 10 mg PO TID PRN muscle spasm 7 05/06/22 days #21 tabs naproxen 500 mg tablet 500 mg PO BID PRN pain 10 days #20 05/06/22 tabs prednisone 20 mg tablet 40 mg (2 x 20 mg) PO DAILY 5 days 05/06/22 #10 tabs azithromycin 250 mg tablet 250 mg PO DAILY 4 days #4 tabs 03/29/25 budesonide-formoterol HFA 160 2 puff inhalation BID #10.2 grams 03/29/25 mcg-4.5 mcg/actuation aerosol inhaler prednisone 20 mg tablet 20 mg PO DAILY #12 tabs 03/29/25 Allergies Allergy/AdvReac Type Severity Reaction Status Date / Time No Known Allergies Allergy Verified 03/29/25 06:26 Review of Systems Review of Systems: Yes all other systems are reviewed and are negative PMFSH Past Medical History Medical History High cholesterol Surgical History Hx of cholecystectomy H/O tubal ligation Social History Social History Alcohol intake: never Patient Tobacco Use Status: Never used Tobacco Physical Exam ED Vital Signs: Vital Signs - 24 hr 03/29/25 06:24 03/29/25 08:54 Temperature 100.2 F Pulse Rate 91 83 Respiratory Rate 18 16 Blood Pressure 155/97 H Pulse Oximetry 98 Oxygen Delivery Method Room Air BMI result Body Mass Index 29.3 Const Other: The patient is a 59-year-old woman who was awake and alert. She is pleasant cooperative. She does not appear in overt distress. She has an occasional dry cough. Orientation/consciousness: patient oriented x3 HENMT Other: Face is symmetrical. Posterior pharynx is normal. Mucous membranes moist. Eyes General: appearance normal, both eyes and all related structures Neck Other: No cervical adenopathy Resp Other: No increased work of breathing. No signs of respiratory distress. The patient has clear lungs throughout. However when the patient coughs she seems to have some wheezes associated with the coughing. Cardio Rate: regular rate Rhythm: regular rhythm Heart sounds: S1 normal heart sound present and S2 normal heart sound present Skin Other: Skin is dry and unremarkable Neuro General: patient oriented x3, gait normal, moves all extremities, no focal motor deficits and CN's II-XI intact bilaterally Extrem Other: No calf swelling or tenderness, no peripheral edema Medications Administered Discontinued Medications Generic Name Dose Route Start Last Admin Trade Name Vipin PRN Reason Stop Dose Admin Albuterol Sulfate 4 puff 03/29/25 08:28 03/29/25 08:47 Albuterol Sulfate 90 Mcg 8 Gm Inhaler INHALE 03/29/25 08:29 4 puff ONCE ONE Administration Azithromycin 500 mg 03/29/25 10:03 03/29/25 10:35 Azithromycin 500 Mg Tablet PO 03/29/25 10:04 500 mg ONCE ONE Administration Prednisone 60 mg 03/29/25 10:03 03/29/25 10:35 Prednisone 20 Mg Tablet PO 03/29/25 10:04 60 mg ONCE ONE Administration Medical Decision Making Medical Decision Making [facility] Narrative: The patient is a 59-year-old woman with a history of a persistent cough. She does not have a history of smoking or asthma or other lung disease. On exam she has clear lungs except when she coughs. She has wheezes with coughing. Chest x-ray shows no definite infiltrate. I have some suspicion that this person might have a cough asthma variant syndrome. She will therefore be prescribed a course of prednisone, azithromycin, and she will be also prescribed a formoterol-budesonide inhaler. She was instructed in the use of an inhaler by respiratory therapy. She should follow up with her PCP. Lab Data Labs: Lab Results 03/29/25 Range/Units 06:37 Influenza Type A (PCR) NEGATIVE (Negative) Influenza Type B (PCR) NEGATIVE (Negative) RSV RNA Qual (PCR) NEGATIVE (Negative) SARS-CoV-2 RNA (RT-PCR) NEGATIVE (Negative) Discharge Plan Discharge Clinical Impression: Asthmatic bronchitis Patient Disposition: Home, Self-Care Instructions: Asthma (ED), How to Use a Metered-Dose Inhaler (ED) Additional Instructions: Please take the prednisone once a day as prescribed, next dose tomorrow. Please also take the azithromycin once a day as prescribed, next dose tomorrow. I have sent a prescription for an inhaler with budesonide-formoterol. Take 2 puffs in the morning and 2 puffs in the evening. You may use the albuterol during the day as needed for coughing or wheezing. Please contact your regular doctor's office today for a follow up appointment next week. Even after you are better you may continue to use the budesonide-formoterol inhaler 2 puffs in the morning and 2 puffs in the evening. Return to the emergency room if significantly worse. Prescriptions: New azithromycin 250 mg tablet 250 mg PO DAILY 4 Days Qty: 4 0RF Rx Instructions: start on day 2 of therapy prednisone 20 mg tablet 20 mg PO DAILY Qty: 12 0RF Rx Instructions: Take 3 tablets by mouth daily for 2 days then take 2 tablets by mouth daily for 3 days. budesonide-formoterol 160-4.5 mcg/actuation HFA aerosol inhaler 2 puff inhalation BID Qty: 10.2 0RF No Action cyclobenzaprine 10 mg tablet 10 mg PO TID PRN (Reason: pain) Qty: 14 0RF ibuprofen 400 mg tablet 400 mg PO Q6H PRN (Reason: pain) Qty: 20 0RF [id number]-roqtakuwd-ED [Bromfed DM] 2-30-10 mg/5 mL syrup 7.5 ml PO Q4-6H PRN (Reason: cold symptoms) Qty: 118 1RF naproxen 500 mg tablet 500 mg PO BID PRN (Reason: pain) 10 Days Qty: 20 0RF prednisone 20 mg tablet 40 mg PO DAILY 5 Days Qty: 10 0RF cyclobenzaprine 10 mg tablet 10 mg PO TID PRN (Reason: muscle spasm) 7 Days Qty: 21 0RF Rx Instructions: side effect is drowsiness. Do not take at work or while driving. Stand Alone Forms: Work/School Release Discharge Date/Time: 03/29/25 11:15 Print Language: Turkmen
[2025-03-29] MEDS: Albuterol Sulfate 90 MCG 8 GM INHALER 4 PUFF INHALE (08:47)
[2025-03-29 08:54] VITALS: PULSE 83; RESP 16; O2SAT 96
[2025-03-29] MEDS: Azithromycin 500 MG TABLET PO (10:35)
[2025-03-29] MEDS: predniSONE 20 MG TABLET 60 MG PO (10:35)
[2025-03-29 10:52] VITALS: BP 149/92; PULSE 84; RESP 18; TEMP 37.1; O2SAT 98
== END 2025-03-29 11:15 | disposition home or self-care (01) ==
PROVIDERS: Emergency Provider Emergency Medicine
DX: J45.909 Unspecified asthma, uncomplicated (principal); J02.9 Acute pharyngitis, unspecified; Z03.818 Encounter for observation for suspected exposure to other biological agents ruled out; Z79.899 Other long term (current) drug therapy
CPT/HCPCS: 0241U; 71046; 94640; 99284; 99285

== ENCOUNTER → 2025-03-29 08:22 | Outpatient (BNV) | payer BC, SELFPAY | PROVIDERS: Emergency Provider Emergency Medicine; Visit Provider Radiology Diagnostic Radiology | DX: R05.9 Cough, unspecified (principal) | CPT/HCPCS: 71046 ==